=== PATIENT | female | born 1990 | race American Indian/Alaskan Native ===

== ENCOUNTER 2017-03-14 17:28 | Emergency (ER) | payer MEDICAID ==
[2017-03-14 18:04] VITALS: BP 130/90
== END 2017-03-14 23:50 | disposition left against medical advice (07) ==
LOC: ED 17:28
DX: M54.9 Dorsalgia, unspecified (principal); R51 Headache; Z53.21 Procedure and treatment not carried out due to patient leaving prior to being seen by health care provider